=== PATIENT | female | born 1955 | race Two or more races ===

== ENCOUNTER → 2018-10-25 | Outpatient (REF) | payer MEDICAID | LOC: M SFHCLERA 09:48 | PROVIDERS: ATTEND Physician Assistant | DX: J02.9 Acute pharyngitis, unspecified (principal) ==

== ENCOUNTER → 2020-12-04 | Outpatient (CLI) | payer MEDICAID | LOC: M SOG 11:48 | PROVIDERS: ATTEND Orthopaedic Surgery Sports Medicine | DX: Z53.9 Procedure and treatment not carried out, unspecified reason (principal) ==